=== PATIENT | female | born 1990 | race Hispanic/Latino ===

== ENCOUNTER 2017-06-21 10:51 | Outpatient (CLI) | payer MEDICAID ==
--- NOTE | 2017-06-21 13:56 | Mammography Report ---
Bilateral mammogram and bilateral breast ultrasound: The patient presents with feeling pea-sized areas of density in the inferior portion of each breast. Markers were placed over the areas identified by the patient and routine views were obtained. There is a heterogeneously dense and generally symmetric and diffusely distributed fibroglandular pattern. No focal mass nor architectural distortion. No change is identified in the regions of the markers. Global bilateral breast ultrasound failed to show any echogenic abnormality. CAD used. Impression: Negative mammogram and global breast ultrasound. Recommendation: Clinical followup. Age-appropriate mammogram followup. Any additional evaluation at this time should be patient your concern. BI-RADS CATEGORY: 1 = Negative ACR BI-RADS MAMMOGRAPHIC CODES: 0 = Needs additional imaging evaluation; 1 = Negative; 2 = Benign; 3 = Probably benign; 4 = Suspicious; 5 = Malignant; 6 = Known biopsy-proven malignancy COMMENT: 1. Dense breast tissue, i.e., adenosis, fibrocystic changes, etc., may obscure an underlying neoplasm. 2. Approximately 10% of cancers are not detected with mammography. 3. A negative mammography report should not delay biopsy if a clinically suspicious mass is present.
== END 2017-06-21 10:52 | disposition home or self-care (01) ==
LOC: US 10:51
PROVIDERS: ATTEND Nurse Practitioner Family
DX: N63 Unspecified lump in breast (principal); D64.9 Anemia, unspecified; Z87.891 Personal history of nicotine dependence
CPT/HCPCS: 76642; G0204; 77066